=== PATIENT | female | born 2000 | race Caucasian/White ===

== ENCOUNTER 2018-05-27 10:13 | Inpatient (IN) ==
[2018-05-27] MEDS ORDERED: KETOROLAC TROMETHAMINE 15 MG/ML VIAL IV STA (10:43)
[2018-05-27] MEDS ORDERED: SODIUM CHLORIDE 0.9% 1000ML 2,000 ML IV SCH (10:45)
[2018-05-27 10:54] LABS: Basophils # (auto) 0.02 K/uL (0-0.2); Basophils % (auto) 0.3 %; Eosinophils # (auto) 0.09 K/uL (0-0.5); Eosinophils % (auto) 1.1 %; Hemoglobin 12.5 g/dL (12.0-16.0); Immature Granulocytes # (auto) 0.02 K/uL (0.00-0.02); Immature Granulocytes % (auto) 0.3 %; Lymphocytes # (auto) 1.22 K/uL (1.2-3.4); Lymphocytes % (auto) 15.4 %; Mean Corpuscular Hgb Conc 33.8 g/dL (32-36); Mean Corpuscular Volume 84.9 fL (80-100); Mean Platelet Volume 10.9 fL (7.4-10.4); Monocytes # (auto) 0.64 K/uL (0.11-0.59); Monocytes % (auto) 8.1 %; Neutrophils # (auto) 5.91 K/uL (1.4-6.5); Neutrophils % (auto) 74.8 %; Platelet Count 198 K/uL (130-400); RDW Coefficient of Variation 13.6 % (11.5-14.5); RDW Standard Deviation 42.1 fL (36.4-46.3); Red Blood Count 4.36 M/uL (4.2-5.4)
[2018-05-27 10:57] LABS: Appearance Urine Clear (Clear); Bacteria Urine Automated Negative (Negative); Bilirubin Urine Negative (Negative); Blood Urine Negative (Negative); Color Urine Yellow; Epithelial Cell Urine Auto >30 /lpf (0-5); Glucose Urine UA Negative (Negative); Ketones Urine Negative (Negative); Leukocyte Esterase Urine 1+ (Negative); Nitrite Urine Negative (Negative); Protein Urine Negative (Negative); RBC Urine Automated 0-4 /hpf (0-4); Specific Gravity Urine 1.017 (1.000-1.030); Urobilinogen Urine Negative (Negative)
[2018-05-27 11:11] LABS: Albumin Level 3.6 gm/dl (3.4-5.0); BUN Creatinine Ratio 8.9 (10-20); Calcium 9.6 mg/dl (8.5-10.1); Creatinine Clr Calc Pharmacy 71.4 ml/min; Est GFR (African American) 99.4; Est GFR (Non-African American) 85.7; Potassium 3.6 mmol/L (3.5-5.1)
[2018-05-27 11:17] LABS: Albumin Globulin Ratio 0.8 (0.9-2); Bilirubin,Total 0.2 mg/dl (0.2-1); Globulin 4.7 gm/dl (2.5-4.0); Total Protein 8.3 gm/dl (6.4-8.2)
[2018-05-27] MEDS ORDERED: IOVERSOL 100ml IV PRN (11:50)
--- NOTE | 2018-05-27 12:08 | CT Scan Report ---
ABDOMEN AND PELVIS CT WITH IV CONTRAST CT DOSE: 296.26 mGycm HISTORY: Acute right-sided flank pain r flank pain TECHNIQUE: Multiaxial CT images of the abdomen and pelvis were performed following the use of intrave nous contrast. A dose lowering technique was utilized adhering to the principles of ALARA. COMPARISON STUDY: None. FINDINGS: Left lung base is clear. 5 mm solid nodule of the basal right lower lobe. Patchy groundglass and cons olidative opacities of the basal right lower lobe. No pneumatosis or pneumoperitoneum. Imaged inferio r cardiac chambers appear unremarkable. Gallbladder, liver, spleen, pancreas and adrenal glands are unremarkable. The left kidney and ureter appear normal. There is mild right-sided hydroureteronephrosis with mild associated urothelial thicke grace and enhancement. Striated right-sided nephrogram. Mild periureteral inflammation. No obstructing calculus or lesion identified. Urinary bladder and uterus are unremarkable. Trace free pelvic fluid is likely physiologic. Adnexa are unremarkable. Aorta and IVC are within normal limits. No adenopathy . No bowel obstruction or focal bowel wall thickening. Suggested constipation with mild to moderate for med stool throughout the colon. Appendix is not definitively seen. No secondary signs of acute append icitis. Air-filled tubular structure of the abdominal right lower quadrant may reflect a normal appen jessica. Breast parenchyma and soft tissues appear unremarkable. Bones appear intact. IMPRESSION: 1. Mild right-sided hydroureteronephrosis with urothelial thickening and enhancement is noted in conj unction with a striated nephrogram suggestive of pyelonephritis with pyelitis/ureteritis. Correlate w ith urinalysis. 2. No renal or ureteral calculi identified. 3. No bowel obstruction or focal bowel wall thickening. 4. Subsegmental groundglass and patchy consolidative opacities of the basal right lower lobe are sugg estive of a nonspecific pneumonitis. Correlate clinically. 5. Trace free pelvic fluid is likely physiologic. Electronically signed by: Todd Alcantar M.D. 05/27/2018 12:06 PM
[2018-05-27] MEDS ORDERED: cefTRIAXone SODIUM 1,000 MG/50 ML BAG IV STA (12:24)
--- NOTE | 2018-05-27 12:55 | History & Physical Report ---
Date of Service May 27, 2018 Assessment & Plan (1) Pyelonephritis: Failed outpt Bactrim Noted on CTAP UA as noted, however has been on abx IVF Cipro BID Advised that this may weaken OCP efficacy and to use backup method if sexually active (2) Depression: continue home meds (3) Anxiety: continue home meds (4) DVT prophylaxis: SCDs, ambulation History of Present Illness Primary Care Provider: NO PCP 17 y/o F c/o R sided flank pain. This started about 6 days ago. Pt was seen by Aniceto Escalera 3 days ago and dx with pyelo. A cx was sent at that time. She was placed on Bactrim, however she feels that her pain is getting worse. No n/v. She has trouble taking deep breaths due to flank pain. She is tolerating PO and has taken the abx as prescribed. No bleeding or pain with urination. No prior hx of UTI or pyelo. Pt has been constipated the last few days. While she has been able to tolerate PO, her intake and fluids have been minimal due to feeling unwell. She states she is having fevers/sweats since Friday. Pt denies SOB, chest pain, abd pain, LE pain or swelling. Allergies Allergy/AdvReac Type Severity Reaction Status Date / Time No Known Allergies Allergy Verified 05/27/18 11:04 Home Medications Home Medications Medication Instructions Recorded Confirmed Type escitalopram oxalate [Lexapro] 10 mg PO DAILY 05/27/18 05/27/18 History norgestimate-ethinyl estradiol 1 tab PO DAILY 05/27/18 05/27/18 History [Sprintec (28)] Past Med/Surg History Social History Feels Safe at Home: Yes Smoking Status: Never smoker Hx Alcohol Use: Yes (occasional on weekends) Hx Substance Use: No Review of Systems Pertinent positives and negatives reviewed in HPI--all others negative Physical Exam Vital Signs (Past 24 Hours): Last Vital Signs Temp 37.1 C 05/27/18 10:23 Pulse 82 05/27/18 12:36 Resp 12 05/27/18 12:36 BP 107/69 05/27/18 12:36 Pulse Ox 100 05/27/18 12:36 Constitutional: WD/WN, vitals as above Eyes: normal visual khanna by confrontation and + anicteric sclerae Neck: normal visual inspection and trachea midline Respiratory: normal respiratory effort, lungs clear to auscultation Cardiovascular: Rate/Rhythm: regular rate and regular rhythm Gastrointestinal (Abdomen): Inspection/Auscultation: abdomen not distended Percussion/Palpation: abdomen soft; abdomen nontender Musculoskeletal: Head/Neck/Chest: normocephalic and head atraumatic negative for edema, peripheral pulses intact R sided flank pain Skin: no rashes, warm and dry Neurologic: awake; not confused Speech / Cognition: normal speech Psychiatric: A+Ox3, euthymic affect Results & Data Diagnostic Findings CT AP: 1. Mild right-sided hydroureteronephrosis with urothelial thickening and enhancement is noted in conjunction with a striated nephrogram suggestive of pyelonephritis with pyelitis/ureteritis. Correlate with urinalysis. 2. No renal or ureteral calculi identified. 3. No bowel obstruction or focal bowel wall thickening. 4. Subsegmental groundglass and patchy consolidative opacities of the basal right lower lobe are suggestive of a nonspecific pneumonitis. Correlate clinically. 5. Trace free pelvic fluid is likely physiologic. Code Status & VTE Plan VTE Prophylaxis Plan VTE Prophylaxis will be ordered: Yes
[2018-05-27] MEDS ORDERED: MAGNESIUM HYDROXIDE SUSP 30 ML UDC PO PRN (14:23)
--- NOTE | 2018-05-27 14:38 | Emergency Department Note ---
Entered by Mirta Wilson acting as a scribe for Kp Jose DO History of Present Illness General Chief complaint: Flank Pain Stated complaint: REALLLY SEVERE KIDNEY PAIN Time Seen by Provider: 05/27/18 10:25 Source: patient Mode of arrival: ambulatory History of Present Illness Provider complaint: right flank pain Onset (ago): day(s) 4 Location: right (flank) Pain Consistency: + constant Maximum Pain Intensity: 6 Quality: + other (worsening) Associated symptoms: + other (increased frequency of urination, feeling feverish. Denies: ) Treatments prior to arrival: other (Bactrim) The patient is a 17 year old female who presents to the Emergency Room with complaints of constant, worsening right flank pain beginning 4 days ago. She reports twisting exacerbates her back pain, while eating and drinking do not seem to affect it. The patient notes increased frequency of urination. She states she felt as though she had a fever 3 days ago. The patient denies nausea, vomiting, vaginal bleeding or discharge. She states her last menstrual period was 3 weeks ago and normal. The patient was seen at [facility] 2 days ago and told she likely had pyelonephritis. She was started on Bactrim. The patient reports she received a call today regarding her urine cultures, and was told to be seen in the ED. Home Medications Home Medications Medication Instructions Recorded Confirmed Type escitalopram oxalate [Lexapro] 10 mg PO DAILY 05/27/18 05/27/18 History norgestimate-ethinyl estradiol 1 tab PO DAILY 05/27/18 05/27/18 History [Sprintec (28)] Allergies Allergy/AdvReac Type Severity Reaction Status Date / Time No Known Allergies Allergy Verified 05/27/18 11:04 Past Med/Surg History Medical History Anxiety Depression Social History Feels Safe at Home: Yes Smoking Status: Never smoker Hx Alcohol Use: Yes (occasional on weekends) Hx Substance Use: No Review of Systems See HPI for pertinent positives & negatives. and A total of 10 systems reviewed and were otherwise negative Physical Exam Vital Signs Vital Signs - 24 hr 05/27/18 10:23 05/27/18 10:54 05/27/18 12:00 Temperature 37.1 C Temperature Source Oral Sepsis Recent Fever Within 48 Hours No Sepsis Action Taken by Nursing No Action Required Pulse Rate 108 H Pulse Rate [Apical] 89 84 Pulse Rhythm Regular Pulse Rhythm [Apical] Regular Regular Pulse Strength Normal Pulse Strength [Apical] Respiratory Rate 18 14 16 Respiratory Effort / Characteristics Non-Labored Non-Labored Non-Labored Respiratory Depth Normal Normal Normal Respiratory Pattern Regular Regular Blood Pressure 136/84 Blood Pressure [Left Arm] 107/81 117/74 Blood Pressure Mean 101 Blood Pressure Mean [Left Arm] 89 88 Blood Pressure Position Sitting Blood Pressure Position [Left Arm] Sitting Sitting Pulse Oximetry 96 97 100 Oxygen Delivery Method Room Air Room Air Room Air 05/27/18 12:36 05/27/18 14:15 05/27/18 14:24 Temperature 36.4 C L Temperature Source Oral Sepsis Recent Fever Within 48 Hours Sepsis Action Taken by Nursing Pulse Rate 87 Pulse Rate [Apical] 82 84 Pulse Rhythm Pulse Rhythm [Apical] Regular Pulse Strength Pulse Strength [Apical] Normal Respiratory Rate 12 18 16 Respiratory Effort / Characteristics Non-Labored Respiratory Depth Normal Respiratory Pattern Regular Blood Pressure 116/78 Blood Pressure [Left Arm] 107/69 104/69 Blood Pressure Mean Blood Pressure Mean [Left Arm] 81 80 Blood Pressure Position Blood Pressure Position [Left Arm] Lying Semi-fowlers Pulse Oximetry 100 98 99 Oxygen Delivery Method Room Air Room Air GENERAL: Sitting up in bed, alert, well appearing, well nourished, no distress, non-toxic EYE EXAM: normal conjunctiva. OROPHARYNX: no exudate, no erythema, lips, buccal mucosa, and tongue normal and mucous membranes are moist NECK: supple, no nuchal rigidity, no adenopathy, non-tender LUNGS: Clear to auscultation. Normal chest wall mechanics HEART: no murmurs, S1 normal and S2 normal ABDOMEN: abdomen soft, non-tender, normo-active bowel, sounds, no masses, no rebound or guarding. BACK: Back is symmetrical on inspection and there is no deformity, no midline tenderness, positive CVA tenderness on the right. SKIN: no rashes and no bruising UPPER EXTREMITIES: upper extremities are grossly normal. LOWER EXTREMITIES: No pitting edema. NEURO EXAM: Normal sensorium, cranial nerves II-XII grossly intact, normal speech, no gross weakness of arms, no gross weakness of legs. Course ED COURSE: Vital signs were reviewed and showed no abnormalities. The patients medical record was reviewed The above diagnostic studies were performed and reviewed. ED treatments and interventions as stated above. 1037: The patient was evaluated in room B11B by Dr. Gonzalez, the resident under my direction. A complete history and physical examination was performed. 1100: I evaluated the patient in room B11B. A complete history and physical examination was performed. 1233: Upon reevaluation, the patient is resting. I discussed my findings with the patient and she understands and agrees with the treatment plan. 1235: I reviewed the patient's case with Dr. Hollingsworth, [facility] hospitalist. She will evaluate the patient for further management. Based on the patients age, coexisting illnesses, exam and lab findings the decision to treat as an inpatient was made. The patient remained stable while under my care. The patient will be evaluated for further management. Consultations Consultation #1: Dr. Hollingsworth, [facility] hospitalist Time: 12:35 Administered Medications Ioversol (Optiray 320 100ml) 94 ml IV ONCE PRN PRN Reason: Interaction Checking Stop: 05/31/18 11:49 Last Admin: 05/27/18 11:50 Dose: 94 ml Documented by: [id number] Discontinued Medications Sodium Chloride (Nss 1000ml) 2,000 mls @ 999 mls/hr IV .Q2H1M DANIE Stop: 05/27/18 12:45 Last Infusion: 05/27/18 13:35 Dose: 0 mls/hr Documented by: [id number] Admin: 05/27/18 10:52 Dose: 999 mls/hr Documented by: [id number] Ceftriaxone Sodium (Rocephin) 1,000 mg in 50 mls @ 100 mls/hr IV NOW STA Stop: 05/27/18 12:53 Last Infusion: 05/27/18 13:05 Dose: 0 mls/hr Documented by: [id number] Admin: 05/27/18 12:35 Dose: 100 mls/hr Documented by: [id number] Ketorolac Tromethamine (Toradol) 15 mg IV NOW STA Stop: 05/27/18 10:44 Last Admin: 05/27/18 10:51 Dose: 15 mg Documented by: [id number] Medical Decision Making Differential Diagnosis Differential diagnoses includes but is not limited to gastritis, peptic ulcer disease, GERD, gallbladder disease, pancreatitis, small bowel obstruction, acute coronary syndrome, pericarditis, ischemic bowel, irritable bowel disease, irritable bowel syndrome, appendicitis, diverticulitis, malignancy, hernia, urinary tract infection, torsion, /ectopic , perforation, trauma, infectious. Medical Records Attestation: I reviewed the patient's medical records. Home Medications Current Medication List: was personally reviewed by me Laboratory Data Attestation: I reviewed the patient's lab results. Result diagrams: 05/27/18 10:31 05/27/18 10:31 Lab Results 05/27/18 05/27/18 05/27/18 Range/Units 10:31 10:31 10:31 WBC 7.90 (4.8-10.8) K/uL RBC 4.36 (4.2-5.4) M/uL Hgb 12.5 (12.0-16.0) g/dL Hct 37.0 (37-47) % MCV 84.9 (80-100) fL MCH 28.7 (25-34) pg MCHC 33.8 (32-36) g/dL RDW Std Deviation 42.1 (36.4-46.3) fL RDW Coeff of Dennys 13.6 (11.5-14.5) % Plt Count 198 (130-400) K/uL MPV 10.9 H (7.4-10.4) fL Immature Gran % (Auto) 0.3 % Neut % (Auto) 74.8 % Lymph % (Auto) 15.4 % Ross % (Auto) 8.1 % Eos % (Auto) 1.1 % Baso % (Auto) 0.3 % Immature Gran # (Auto) 0.02 (0.00-0.02) K/uL Neut # (Auto) 5.91 (1.4-6.5) K/uL Lymph # (Auto) 1.22 (1.2-3.4) K/uL Ross # (Auto) 0.64 H (0.11-0.59) K/uL Eos # (Auto) 0.09 (0-0.5) K/uL Baso # (Auto) 0.02 (0-0.2) K/uL Sodium 136 (136-145) mmol/L Potassium 3.6 (3.5-5.1) mmol/L Chloride 104 (98-107) mmol/L Carbon Dioxide 28 (21-32) mmol/L Anion Gap 4.0 (3-11) BUN 9 (7-18) mg/dl Creatinine 0.96 (0.6-1.2) mg/dl Est Cr Clr Drug Dosing 71.4 ml/min Est GFR ( Amer) 99.4 Est GFR (Non-Af Amer) 85.7 BUN/Creatinine Ratio 8.9 L (10-20) Glucose 90 (70-99) mg/dl Calcium 9.6 (8.5-10.1) mg/dl Total Bilirubin 0.2 (0.2-1) mg/dl AST 11 L (15-37) U/L ALT 12 (12-78) U/L Alkaline Phosphatase 106 (45-117) U/L Total Protein 8.3 H (6.4-8.2) gm/dl Albumin 3.6 (3.4-5.0) gm/dl Globulin 4.7 H (2.5-4.0) gm/dl Albumin/Globulin Ratio 0.8 L (0.9-2) Lipase 172 (73-393) U/L Urine Color Urine Appearance (Clear) Urine pH (4.5-7.5) POC Urine pH 6 (4.5-7.5) Ur Specific Calvert (1.000-1.030) Urine Protein (Negative) POC Urine Protein Negative (Negative) Urine Glucose (UA) (Negative) POC Ur Glucose (UA) Normal (Normal) Urine Ketones (Negative) POC Urine Ketones Negative (Negative) Urine Blood (Negative) POC Urine Blood Trace H (Negative) Urine Nitrite (Negative) POC Urine Nitrite Negative (Negative) Urine Bilirubin (Negative) POC Urine Bilirubin Negative (Negative) Urine Urobilinogen (Negative) POC Urine Urobilinogen Normal (Normal) Ur Leukocyte Esterase (Negative) POC U Leukocyte Esteras Trace H (Negative) Urine WBC (Auto) (0-5) /hpf Urine RBC (Auto) (0-4) /hpf U Hyaline Cast (Auto) (0-5) /lpf U Epithel Cells (Auto) (0-5) /lpf Urine Bacteria (Auto) (Negative) POC Ur Test (NEG) 05/27/18 05/27/18 Range/Units 10:31 10:31 WBC (4.8-10.8) K/uL RBC (4.2-5.4) M/uL Hgb (12.0-16.0) g/dL Hct (37-47) % MCV (80-100) fL MCH (25-34) pg MCHC (32-36) g/dL RDW Std Deviation (36.4-46.3) fL RDW Coeff of Dennys (11.5-14.5) % Plt Count (130-400) K/uL MPV (7.4-10.4) fL Immature Gran % (Auto) % Neut % (Auto) % Lymph % (Auto) % Ross % (Auto) % Eos % (Auto) % Baso % (Auto) % Immature Gran # (Auto) (0.00-0.02) K/uL Neut # (Auto) (1.4-6.5) K/uL Lymph # (Auto) (1.2-3.4) K/uL Ross # (Auto) (0.11-0.59) K/uL Eos # (Auto) (0-0.5) K/uL Baso # (Auto) (0-0.2) K/uL Sodium (136-145) mmol/L Potassium (3.5-5.1) mmol/L Chloride (98-107) mmol/L Carbon Dioxide (21-32) mmol/L Anion Gap (3-11) BUN (7-18) mg/dl Creatinine (0.6-1.2) mg/dl Est Cr Clr Drug Dosing ml/min Est GFR ( Amer) Est GFR (Non-Af Amer) BUN/Creatinine Ratio (10-20) Glucose (70-99) mg/dl Calcium (8.5-10.1) mg/dl Total Bilirubin (0.2-1) mg/dl AST (15-37) U/L ALT (12-78) U/L Alkaline Phosphatase (45-117) U/L Total Protein (6.4-8.2) gm/dl Albumin (3.4-5.0) gm/dl Globulin (2.5-4.0) gm/dl Albumin/Globulin Ratio (0.9-2) Lipase (73-393) U/L Urine Color Yellow Urine Appearance Clear (Clear) Urine pH 7.0 (4.5-7.5) POC Urine pH (4.5-7.5) Ur Specific Calvert 1.017 (1.000-1.030) Urine Protein Negative (Negative) POC Urine Protein (Negative) Urine Glucose (UA) Negative (Negative) POC Ur Glucose (UA) (Normal) Urine Ketones Negative (Negative) POC Urine Ketones (Negative) Urine Blood Negative (Negative) POC Urine Blood (Negative) Urine Nitrite Negative (Negative) POC Urine Nitrite (Negative) Urine Bilirubin Negative (Negative) POC Urine Bilirubin (Negative) Urine Urobilinogen Negative (Negative) POC Urine Urobilinogen (Normal) Ur Leukocyte Esterase 1+ H (Negative) POC U Leukocyte Esteras (Negative) Urine WBC (Auto) 10-30 H (0-5) /hpf Urine RBC (Auto) 0-4 (0-4) /hpf U Hyaline Cast (Auto) 1-5 (0-5) /lpf U Epithel Cells (Auto) >30 H (0-5) /lpf Urine Bacteria (Auto) Negative (Negative) POC Ur Test NEG (NEG) Imaging Data Radiologist's Impression: Radiology results as stated below per my review and the radiologist's interpretation: ABDOMEN AND PELVIS CT WITH IV CONTRAST CT DOSE: 296.26 mGycm HISTORY: Acute right-sided flank pain r flank pain TECHNIQUE: Multiaxial CT images of the abdomen and pelvis were performed following the use of intravenous contrast. A dose lowering technique was util ized adhering to the principles of ALARA. COMPARISON STUDY: None. FINDINGS: Left lung base is clear. 5 mm solid nodule of the basal right lower lobe. Patchy groundglass and consolidative opacities of the basal right lower lobe. No pneumatosis or pneumoperitoneum. Imaged inferior cardiac chambers appear unremarkable. Gallbladder, liver, spleen, pancreas and adrenal glands are unremarkable. The left kidney and ureter appear normal. There is mild right-sided hydroureteronephrosis with mild associated urothelial thickening and enhancement. Striated right-sided nephrogram. Mild periureteral inflammation. No obstructing calculus or lesion identified. Urinary bladder and uterus are unremarkable. Trace free pelvic fluid is likely physiologic. Adnexa are unremarkable. Aorta and IVC are within normal limits. No adenopathy. No bowel obstruction or focal bowel wall thickening. Suggested constipation with mild to moderate formed stool throughout the colon. Appendix is not definitively seen. No secondary signs of acute appendicitis. Air-filled tubular structure of the abdominal right lower quadrant may reflect a normal appendix. Breast parenchyma and soft tissues appear unremarkable. Bones appear intact. IMPRESSION: 1. Mild right-sided hydroureteronephrosis with urothelial thickening and enhancement is noted in conjunction with a striated nephrogram suggestive of pyelonephritis with pyelitis/ureteritis. Correlate with urinalysis. 2. No renal or ureteral calculi identified. 3. No bowel obstruction or focal bowel wall thickening. 4. Subsegmental groundglass and patchy consolidative opacities of the basal right lower lobe are suggestive of a nonspecific pneumonitis. Correlate clin ically. 5. Trace free pelvic fluid is likely physiologic. Electronically signed by: Todd Alcantar M.D. 05/27/2018 12:06 PM Blood Pressure Blood Pressure Findings: Normal blood pressure Blood Pressure Disposition: did not require urgent referral MDM Narrative Patient is a 17-year-old female who presents the ER for right flank pain which is been present for the past 4 days. She had urinary symptoms about a week ago. She is placed on Bactrim to go and her symptoms have been worsening. No nausea vomiting. Vitals are unremarkable. Labs were obtained and showed no sig nificant leukocytosis or anemia. BMP along with LFTs bilirubin and lipase was unremarkable. UA was clean although patient was on antibiotics for [address] shows a clear pyelonephritis of the right side. She has been on antibiotics for the past 3 days. She was given IV Rocephin. Do favor that this likely warrants IV antibiotics at this time. Patient was updated and admitted to hospital for further workup of her pyelonephritis. Impression & Plan Pyelonephritis Discharge Plan Visit Data *Final* Discharge Date/Time: 05/27/18 14:15 Chief Complaint: Flank Pain Stated Complaint: REALLLY SEVERE KIDNEY PAIN ED Provider: Kp Jose ED Midlevel Provider: Corey Gonzalez Discharge Problem: Pyelonephritis Patient Disposition: Admitted As Inpatient Discharge Instructions Interventions: ED Discharge Assessment Last Done: 05/27/18 14:15 The scribe's documentation has been prepared under my direction and personally reviewed by me in its entirety. I confirm that the note above accurately reflects all work, treatment, procedures, and medical decision making performed by me.
[2018-05-27] MEDS: CIPROFLOXACIN 400 MG/200 ML BAG IV SCH ×2 (14:43→22:53)
[2018-05-27] MEDS: ACETAMINOPHEN 325 MG TAB PO PRN (15:52)
[2018-05-27] MEDS: NSS + 20MEQ KCL 20 MEQ/1,000 ML BAG IV SCH (15:54)
[2018-05-27] MEDS: KETOROLAC TROMETHAMINE 15 MG/ML VIAL IV PRN (17:46)
[2018-05-27] MEDS ORDERED: Nursing to Pharmacy Communication ONE (19:13)
[2018-05-27] MEDS: ONDANSETRON INJ 2 MG/ML 2 ML VIAL IV PRN (19:31)
[2018-05-27] MEDS ORDERED: KETOROLAC 30 MG/ML VIAL IV ONE (19:36)
[2018-05-27] MEDS ORDERED: KETOROLAC 30 MG/ML VIAL ONE (19:37)
[2018-05-28] MEDS: NSS + 20MEQ KCL 20 MEQ/1,000 ML BAG IV SCH ×2 (06:18→15:44)
[2018-05-28] MEDS: ESCITALOPRAM OXALATE 10 MG TAB PO SCH (07:50)
[2018-05-28] MEDS: CIPROFLOXACIN 400 MG/200 ML BAG IV SCH ×2 (07:50→21:02)
[2018-05-28] MEDS: ACETAMINOPHEN 325 MG TAB PO PRN ×2 (08:01→15:44)
[2018-05-28] MEDS ORDERED: diphenhydrAMINE HCl 12.5 MG/5 ML UDC PO ONE (08:41)
[2018-05-28] MEDS: ONDANSETRON INJ 2 MG/ML 2 ML VIAL IV PRN (19:56)
[2018-05-28] MEDS: KETOROLAC TROMETHAMINE 15 MG/ML VIAL IV PRN (20:00)
--- NOTE | 2018-05-28 22:35 | Hospitalist Progress Note ---
Date of Service May 28, 2018 Assessment & Plan (1) Pyelonephritis: Failed outpt Bactrim Noted on CTAP UA as noted, however has been on abx IVF Cipro BID/ Patient appears to be having a rash from the ciprofloxacin. Will monitor for now. Advised that this may weaken OCP efficacy and to use backup method if sexually active (2) Depression: continue home meds (3) Anxiety: continue home meds (4) DVT prophylaxis: SCDs, ambulation Spent 25 minutes in management of patient. Subjective 17 yo female reports feeling about the same. She does report having pain in her lower back. Patient denies nay fever, chills, nausea, vomiting, diarrhea. Review of Systems All systems reviewed & are unremarkable except as noted in HPI & below Physical Exam Vital Signs (Past 24 Hours): Last Vital Signs Temp 36.2 C L 05/28/18 21:45 Pulse 84 05/28/18 21:45 Resp 16 05/28/18 21:45 BP 114/74 05/28/18 21:45 Pulse Ox 99 05/28/18 21:45 Physical Exam: Constitutional: WD/WN, vitals as above Eyes: normal visual khanna by confrontation and + anicteric sclerae Neck: normal visual inspection and trachea midline Respiratory: normal respiratory effort, lungs clear to auscultation Cardiovascular: Rate/Rhythm: regular rate and regular rhythm Gastrointestinal (Abdomen): Inspection/Auscultation: abdomen not distended Percussion/Palpation: abdomen soft; abdomen nontender Musculoskeletal: Head/Neck/Chest: normocephalic and head atraumatic negative for edema, peripheral pulses intact RCVA tenderness Skin: no rashes, warm and dry Neurologic: awake; not confused Speech / Cognition: normal speech Psychiatric: A+Ox3, euthymic affect
[2018-05-29] MEDS: NSS + 20MEQ KCL 20 MEQ/1,000 ML BAG IV SCH (06:14)
[2018-05-29] MEDS: CIPROFLOXACIN 400 MG/200 ML BAG IV SCH (08:27)
[2018-05-29] MEDS: ESCITALOPRAM OXALATE 10 MG TAB PO SCH (10:06)
[2018-05-29] MEDS ORDERED: cefTRIAXone SODIUM 1,000 MG in DEXTROSE 5% 50 ML IV SCH (10:15)
[2018-05-29 10:40] LABS: Basophils # (auto) 0.01 K/uL (0-0.2); Basophils % (auto) 0.2 %; Eosinophils # (auto) 0.11 K/uL (0-0.5); Hematocrit (blood only) 31.6 % (37-47); Hemoglobin 10.4 g/dL (12.0-16.0); Lymphocytes # (auto) 1.16 K/uL (1.2-3.4); Lymphocytes % (auto) 21.3 %; Mean Corpuscular Hgb Conc 32.9 g/dL (32-36); Mean Corpuscular Volume 84.3 fL (80-100); Mean Platelet Volume 10.7 fL (7.4-10.4); Monocytes # (auto) 0.29 K/uL (0.11-0.59); Monocytes % (auto) 5.3 %; Neutrophils # (auto) 3.88 K/uL (1.4-6.5); Neutrophils % (auto) 71.2 %; Platelet Count 165 K/uL (130-400); RDW Coefficient of Variation 13.3 % (11.5-14.5); RDW Standard Deviation 41.2 fL (36.4-46.3); Red Blood Count 3.75 M/uL (4.2-5.4); White Blood Count 5.45 K/uL (4.8-10.8)
--- NOTE | 2018-06-06 09:05 | Discharge Summary ---
Date of Service May 29, 2018 Admission HPI Per Admitting Provider 17 y/o F c/o R sided flank pain. This started about 6 days ago. Pt was seen by [facility] 3 days ago and dx with pyelo. A cx was sent at that time. She was placed on Bactrim, however she feels that her pain is getting worse. No n/v. She has trouble taking deep breaths due to flank pain. She is tolerating PO and has taken the abx as prescribed. No bleeding or pain with urination. No prior hx of UTI or pyelo. Pt has been constipated the last few days. While she has been able to tolerate PO, her intake and fluids have been minimal due to feeling unwell. She states she is having fevers/sweats since Friday. Pt denies SOB, chest pain, abd pain, LE pain or swelling. Principal Diagnosis Right acute pyelonephritis Discharge Exam Constitutional: WD/WN, vitals as above Eyes: normal visual khanna by confrontation and + anicteric sclerae Neck: normal visual inspection and trachea midline Respiratory: normal respiratory effort, lungs clear to auscultation Cardiovascular: Rate/Rhythm: regular rate and regular rhythm Gastrointestinal (Abdomen): Inspection/Auscultation: abdomen not distended Percussion/Palpation: abdomen soft; abdomen nontender Musculoskeletal: Head/Neck/Chest: normocephalic and head atraumatic negative for edema, peripheral pulses intact RCVA tenderness Skin: no rashes, warm and dry Neurologic: awake; not confused Speech / Cognition: normal speech Psychiatric: A+Ox3, euthymic affect Discharge Data Allergies Allergy/AdvReac Type Severity Reaction Status Date / Time No Known Allergies Allergy Verified 05/27/18 11:04 Consultations 05/27/18 12:37 ED Decision to Admit Stat Ordered Studies 05/27/18 10:44 CT abd pelvis IV con only Stat Hospital Course (1) Pyelonephritis: Failed outpt Bactrim Noted on CTAP Urine culture confirmed E. coli resistance to bactrim and Flouroquinoones. This explains why patient did not improve.Patient was given one dose of IV ceftriaxone And will be discharged on a cephalosporin As noted earlier in hospital stay, patient apears to have rashes from floruoqiunolones. Also noted that patient was advised that this may weaken Oral Contraceptive Pills efficacy and to use backup method if sexually active (2) Depression: continue home meds (3) Anxiety: continue home meds (4) DVT prophylaxis: SCDs, ambulation Family was at bedside and with permission of patient, they were updated as well.. Total Time Total Time Spent Total Time Spent (In Minutes): 32 Total Time Includes: Examination of the Patient, Discharge Planning and Medication Reconciliation Discharge Plan Discharge Items Patient Disposition: Home - Self-Care Reason For Visit: PYELO,FAILED OUTPT [place] Discharge Diagnosis: Pyelonephritis Discharge Goals: Decrease discomfort and Diagnostic testing Activity: Resume your previous activity Non-emergency contact: Primary Care Provider Call non-emergency contact if: your symptoms worsen [facility]-up[facility]Referrals[facility]Non[facility] - (you need to call to schedule an appointment) Diet: Regular Addtl Provider Instructions: You were treated for urinary tract infection. The bug was E. coli and it was resistant to the antibiotics you were receving. You received 1 dose of the antibiotic IV here. You will start again tomorrow morning taking the antibiotic by mouth. Please put a reminder on your phone to take it twice a day. Even if you feel better, you will need to finish it. Prescriptions: New cefpodoxime 200 mg tablet 200 mg PO BID 13 Days Qty: 26 RF: 0 Continued norgestimate-ethinyl estradiol [Sprintec (28)] 0.25-35 mg-mcg Tablet 1 tab PO DAILY RF: 0 escitalopram oxalate [Lexapro] 10 mg Tablet 10 mg PO DAILY RF: 0 Stand-Alone Forms: [facility] Discharge Orders: Discharge Order (Routine); Ordered 05/29/18 Ordered By: Anshul Peters Admission Data Admit Date/Time: 05/27/18 12:51 Attending Provider: Anshul Peters Admit Provider: Sherri Hollingsworth Primary Care Provider: PCP,NO Service: Medical Other Interventions: Discharge Summary Assessment (RN) Last Done: 05/29/18 12:55 DC Date/Time DO NOT enter until pt leaves facility: 05/29/18 13:27
== END 2018-05-29 13:27 | disposition home or self-care (01) | DRG 690 ==
LOC: ED 10:13 → 2W 12:51 → SUATTDRO 12:51 → 2W 14:15 → 4E 05-28 21:38
DX: Z79.3 Long term (current) use of hormonal contraceptives; T36.8X5A Adverse effect of other systemic antibiotics, initial encounter; F41.9 Anxiety disorder, unspecified; L27.0 Generalized skin eruption due to drugs and medicaments taken internally; Z79.899 Other long term (current) drug therapy; N12 Tubulo-interstitial nephritis, not specified as acute or chronic; F32.9 Major depressive disorder, single episode, unspecified